=== PATIENT | male | born 1975 ===

== ENCOUNTER 2024-11-19 10:31 | Outpatient (AMB) | payer OTHER, SELFPAY | END 2024-11-19 13:46 | disposition home or self-care (01) | PROVIDERS: PCP Internal Medicine; Visit Provider Anesthesiology | DX: J30.89 Other allergic rhinitis (principal) | CPT/HCPCS: 95117; 95165 ==

== ENCOUNTER 2024-12-16 09:23 | Outpatient (AMB) | payer OTHER, SELFPAY | END 2024-12-16 09:24 | disposition home or self-care (01) | LOC: HO.HMGAL 09:23 | PROVIDERS: PCP Internal Medicine; Visit Provider Registered Nurse Emergency | DX: J30.89 Other allergic rhinitis (principal) | CPT/HCPCS: 95117; 95165 ==